=== PATIENT | male | born 1980 | race African-American/Black ===

== ENCOUNTER 2016-08-31 07:03 | Emergency (ER) | payer MEDICARE, OTHER ==
[~2016-08-31] VITALS: Ht 182.9 cm; Wt 108.9 kg
[~2016-08-31 07:03] MED LIST: ALPR0.257 PO; AMLO1CAP15 PO; ASPI-482 PO; ATOR20TA PO; BACL20TA PO; BENZ100C PO; BUDE10.2 IH; CLON1TAB PO; HYDR12.58 PO; LISI-334 PO; OXYC10TA PO; PROAIR HFA8.5 GM IH; PROAIR HFA8.5 GM INH; SULF1TAB24 PO
[2016-08-31 07:15] VITALS: BP 158/101
--- NOTE | 2016-08-31 07:31 | RAD ---
EXAM: Chest 2 views. HISTORY: Cough, chills, congestion. COMPARISON: 03/15/2016. FINDINGS: Frontal and lateral views of the chest are obtained. There are no confluent infiltrates. There is no pneumothorax or pleural effusion. The heart is not enlarged. IMPRESSION: 1. No confluent infiltrates.
[2016-08-31] MEDS ORDERED: IPRATRPIUM/ALBUTEROL 0.5/2.5MG 3 ML NEBU. NEB ONE (08:15)
[2016-08-31] MEDS ORDERED: BENZ100C PO (08:45)
[2016-08-31] MEDS ORDERED: PRED50TA PO (08:45)
[2016-08-31] MEDS ORDERED: PROAIR RESPICL90 MCG IH (08:45)
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
== END 2016-08-31 08:55 | disposition home or self-care (01) ==
LOC: ER 07:03
DX: J20.9 Acute bronchitis, unspecified (principal); I12.9 Hypertensive chronic kidney disease with stage 1 through stage 4 chronic kidney disease, or unspecified chronic kidney disease; N18.9 Chronic kidney disease, unspecified; M10.9 Gout, unspecified; E78.00 Pure hypercholesterolemia, unspecified; F17.210 Nicotine dependence, cigarettes, uncomplicated; Z91.09 Other allergy status, other than to drugs and biological substances
CPT/HCPCS: 71020; 94250; 94640; 99284-25

== ENCOUNTER 2016-11-12 18:01 | Emergency (ER) | payer MEDICARE, OTHER ==
[~2016-11-12] VITALS: Ht 182.9 cm; Wt 108.9 kg
[~2016-11-12 18:01] MED LIST changes: +PRED50TA PO; +PROAIR RESPICL90 MCG IH
[2016-11-12 19:23] VITALS: BP 117/82
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
[2016-11-12] MEDS ORDERED: NAPR500T8 PO (20:44)
[2016-11-12] MEDS ORDERED: CYCL10TA2 PO (20:44)
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
== END 2016-11-12 20:54 | disposition home or self-care (01) ==
LOC: ER 19:54
DX: S13.4XXA Sprain of ligaments of cervical spine, initial encounter (principal); S63.501A Unspecified sprain of right wrist, initial encounter; S63.502A Unspecified sprain of left wrist, initial encounter; E78.00 Pure hypercholesterolemia, unspecified; M10.9 Gout, unspecified; I12.9 Hypertensive chronic kidney disease with stage 1 through stage 4 chronic kidney disease, or unspecified chronic kidney disease; N18.9 Chronic kidney disease, unspecified; Z91.048 Other nonmedicinal substance allergy status; V89.2XXA Person injured in unspecified motor-vehicle accident, traffic, initial encounter; Y92.488 Other paved roadways as the place of occurrence of the external cause; Y93.89 Activity, other specified; Y99.8 Other external cause status
CPT/HCPCS: 72125; 73130; 99284-25

== ENCOUNTER 2018-08-10 02:39 | Emergency (ER) | payer MEDICARE, OTHER ==
[~2018-08-10] VITALS: Ht 182.9 cm; Wt 108.9 kg
[~2018-08-10 02:39] MED LIST changes: +ALBU2.5V8 IH; +ALBU2.5V8 INH; +CYCL10TA2 PO; +NAPR500T8 PO; -PROAIR HFA8.5 GM IH; -PROAIR HFA8.5 GM INH
[2018-08-10 03:08] VITALS: BP 142/89
== END 2018-08-10 03:30 | disposition left against medical advice (07) ==
LOC: ER 02:39
DX: R51 Headache (principal); Z53.21 Procedure and treatment not carried out due to patient leaving prior to being seen by health care provider